=== PATIENT | female | born 1960 | race Caucasian/White ===

== ENCOUNTER 2018-04-24 10:11 | Inpatient (IN) | payer MEDICARE, OTHER ==
[2018-04-24] MEDS: SOD CHLORIDE 0.9% 500 ML IV (11:01)
[2018-04-24] MEDS: ONDANSETRON 4 MG INJ IV ×3 (11:01→16:10)
[2018-04-24 11:11] LABS: ADD UMIC YES; UR ASCORBIC ACID NEGATIVE (NEGATIVE); UR BACTERIA FEW /HPF (NONE SEEN); UR BILIRUBIN (Dip) 1+ mg/dL (NEGATIVE); UR BLOOD (Dip) NEGATIVE (NEGATIVE); UR CLARITY SLIGHTLY CLOUDY (CLEAR); UR COLOR AMBER (YELLOW); UR GLUCOSE (Dip) NEGATIVE (NEGATIVE); UR KETONES (Dip) 1+ mg/dL (NEGATIVE); UR LEUKOCYTE ESTERASE (Dip) TRACE Leu/ul (NEGATIVE); UR NITRITE (Dip) NEGATIVE (NEGATIVE); UR RBC 2 /HPF (0-5); UR SPECIFIC GRAVITY (Dip) 1.027 (1.003-1.030); UR SQUAMOUS EPITHELIAL CELL FEW /HPF (FEW); UR TOTAL PROTEIN (Dip) 2+ mg/dl (NEGATIVE); UR UROBILINOGEN (Dip) 2+ mg/dL (NEGATIVE); UR WBC 10 /HPF (0-5)
[2018-04-24 11:36] LABS: ADD MAN DIFF? NO
[2018-04-24 11:40] LABS: POSITIVE DIFF @See below
[2018-04-24 11:41] LABS: BASOPHILS % 0.2 % (0.0-2.0); HEMATOCRIT 33.1 % (37.0-47.0); HEMOGLOBIN 10.9 g/dl (12.0-16.0); LYMPHOCYTES # 0.7 10^3/ul (0.8-2.9); LYMPHOCYTES % 14.3 % (15.0-51.0); MEAN CORPUSCULAR HEMOGLOBIN 28.1 pg (29.0-33.0); MEAN CORPUSCULAR HGB CONC 32.9 g/dl (32.0-37.0); MEAN CORPUSCULAR VOLUME 85.3 fl (82.0-101.0); MEAN PLATELET VOLUME 9.8 fl (7.4-10.4); MONOCYTE # 0.4 10^3/ul (0.3-0.9); MONOCYTES % 9.4 % (0.0-11.0); NEUTROPHIL # 3.5 10^3/ul (1.6-7.5); NEUTROPHILS % 75.9 % (39.0-77.0); PLATELET COUNT 128 10^3/UL (140-415); RED BLOOD COUNT 3.88 10^6/ul (4.20-5.40); RED CELL DISTRIBUTION WIDTH 12.3 % (11.5-14.5)
[2018-04-24 11:41] LABS: WHITE BLOOD COUNT 4.7 10^3/ul (4.8-10.8)
[2018-04-24 12:03] LABS: ALANINE AMINOTRANSFERASE 91 IU/L (13-69); ALBUMIN 3.8 g/dl (3.3-4.9); ALBUMIN/GLOBULIN RATIO 1.26; ALKALINE PHOSPHATASE 130 IU/L (42-121); ANION GAP 10 (5-13); ASPARTATE AMINO TRANSFERASE 82 IU/L (15-46); BILIRUBIN,INDIRECT 2.4 mg/dl (0-1.1); BILIRUBIN,TOTAL 2.4 mg/dl (0.2-1.3); BLOOD UREA NITROGEN 17 mg/dl (7-20); CALCIUM 8.5 mg/dl (8.4-10.2); CARBON DIOXIDE 25 mmol/L (21-31); CHLORIDE 100 mmol/L (97-110); CREATININE 0.71 mg/dl (0.44-1.00); Estimated GFR > 60 mL/min (>60); GLUCOSE 138 mg/dl (70-220); POTASSIUM 4.1 mmol/L (3.5-5.1); SODIUM 135 mmol/L (135-144); TOTAL PROTEIN 6.8 g/dl (6.1-8.1)
[2018-04-24 12:12] LABS: TROPONIN-I < 0.012 ng/ml (0.000-0.120)
[2018-04-24 12:46] LABS: ANISOCYTOSIS 2+ (0-0); BAND NEUTROPHILS % (M) 1 % (0-4); GIANT THROMBO% (M) 1 % (0-0); LYMPHOCYTES #M 0.7 10^3/ul (0.8-2.9); LYMPHOCYTES % (M) 15 % (15-51); MICROCYTOSIS 2+ (0-0); MONOCYTE #M 0.2 10^3/ul (0.3-0.9); MONOCYTES % (M) 5 % (0-11); PLATELET ESTIMATE DECREASED; POIKILOCYTOSIS 1+ (0-0); POLYCHROMASIA 3+ (0-0); REACTIVE LYMPHOCYTES #M 0.2 10^3/ul (0.0-0.0); REACTIVE LYMPHOCYTES% (M) 5 % (0-0); SEG NEUT #M 3.5 10^3/ul (1.6-7.5); SEGMENTED NEUTROPHILS (M) % 74 % (39-77); SMUDGE%M 3 % (0-0)
[2018-04-24 13:51] LABS: LIPASE 3930 U/L (23-300)
[2018-04-24] MEDS ORDERED: NACL 0.9% 3 ML SYG IV (15:30)
[2018-04-24] MEDS ORDERED: morphine 2 MG INJ IV (15:30)
[2018-04-24] MEDS: SOD CHLORIDE 0.9% 1,000 ML IV ×2 (16:01→23:52)
[2018-04-24] MEDS: SOD CHLORIDE 0.9% 100 ML (17:22)
[2018-04-24] MEDS: IOHEXOL 300MG/ML 150 ML BTL (17:23)
[2018-04-24] MEDS: METOCLOPRAMIDE 10 MG INJ IV ×2 (17:44→23:52)
[2018-04-24] MEDS: HYDROmorphONE 0.5 MG/0.5 ML SYG IV (17:52)
[2018-04-24] MEDS: ACETAMINOPHEN 325 MG TAB PO (20:14)
[2018-04-24] MEDS: ENOXAPARIN 100 MG/ML SYG SC (20:18)
[2018-04-25 06:07] LABS: ADD MAN DIFF? NO
[2018-04-25 06:12] LABS: BASOPHILS % 0.2 % (0.0-2.0); EOSINOPHILS % 0.2 % (0.0-7.0); HEMATOCRIT 35.6 % (37.0-47.0); HEMOGLOBIN 11.6 g/dl (12.0-16.0); LYMPHOCYTES # 0.9 10^3/ul (0.8-2.9); LYMPHOCYTES % 16.9 % (15.0-51.0); MEAN CORPUSCULAR HEMOGLOBIN 28.4 pg (29.0-33.0); MEAN CORPUSCULAR HGB CONC 32.6 g/dl (32.0-37.0); MEAN CORPUSCULAR VOLUME 87.3 fl (82.0-101.0); MEAN PLATELET VOLUME 10.7 fl (7.4-10.4); MONOCYTE # 0.5 10^3/ul (0.3-0.9); MONOCYTES % 8.6 % (0.0-11.0); NEUTROPHIL # 4.1 10^3/ul (1.6-7.5); NEUTROPHILS % 73.7 % (39.0-77.0); PLATELET COUNT 108 10^3/UL (140-415); RED BLOOD COUNT 4.08 10^6/ul (4.20-5.40); RED CELL DISTRIBUTION WIDTH 12.7 % (11.5-14.5)
[2018-04-25 06:12] LABS: WHITE BLOOD COUNT 5.5 10^3/ul (4.8-10.8)
[2018-04-25] MEDS: SOD CHLORIDE 0.9% 1,000 ML IV ×4 (06:22→22:17)
[2018-04-25] MEDS: METOCLOPRAMIDE 10 MG INJ IV ×4 (06:22→23:35)
[2018-04-25] MEDS: PANTOPRAZOLE 40 MG INJ IV (06:22)
[2018-04-25 06:38] LABS: HEMOGLOBIN A1C 5.6 % (0-5.9)
[2018-04-25 07:01] LABS: ALANINE AMINOTRANSFERASE 83 IU/L (13-69); ALBUMIN 3.3 g/dl (3.3-4.9); ALBUMIN/GLOBULIN RATIO 1.06; ALKALINE PHOSPHATASE 162 IU/L (42-121); ANION GAP 11 (5-13); ASPARTATE AMINO TRANSFERASE 67 IU/L (15-46); BILIRUBIN,INDIRECT 1.3 mg/dl (0-1.1); BILIRUBIN,TOTAL 1.3 mg/dl (0.2-1.3); BLOOD UREA NITROGEN 17 mg/dl (7-20); CARBON DIOXIDE 21 mmol/L (21-31); CHLORIDE 110 mmol/L (97-110); CREATININE 0.68 mg/dl (0.44-1.00); Estimated GFR > 60 mL/min (>60); GLUCOSE 97 mg/dl (70-220); MAGNESIUM 2.1 mg/dl (1.7-2.5); POTASSIUM 4.3 mmol/L (3.5-5.1); SODIUM 142 mmol/L (135-144); TOTAL PROTEIN 6.4 g/dl (6.1-8.1)
[2018-04-25] MEDS: ENOXAPARIN 100 MG/ML SYG SC (08:34)
[2018-04-25] MEDS: PIPER-TAZO 3.375 GM IV (PMX) 100 ML IVPB ×3 (11:31→23:35)
[2018-04-25] MEDS: HYDROmorphONE 0.5 MG/0.5 ML SYG IV (18:40)
[2018-04-25 19:39] LABS: LIPASE 893 U/L (23-300)
[2018-04-25] MEDS: ENOXAPARIN 80 MG/0.8 ML SYG SC (20:30)
[2018-04-25] MEDS ORDERED: ENOXAPARIN 100 MG/ML SYG SC (21:00)
[2018-04-25] MEDS: ONDANSETRON 4 MG INJ IV (23:35)
[2018-04-25] MEDS: HYDROCODONE/APAP (5/325) TAB PO (23:44)
[2018-04-26] MEDS: PANTOPRAZOLE 40 MG INJ IV (05:00)
[2018-04-26] MEDS: METOCLOPRAMIDE 10 MG INJ IV ×4 (05:06→23:37)
[2018-04-26] MEDS: PIPER-TAZO 3.375 GM IV (PMX) 100 ML IVPB ×4 (05:07→23:37)
[2018-04-26] MEDS: SOD CHLORIDE 0.9% 1,000 ML IV (05:38)
[2018-04-26 06:00] LABS: ADD MAN DIFF? NO
[2018-04-26 06:34] LABS: BASOPHILS % 0.2 % (0.0-2.0); EOSINOPHILS % 0.6 % (0.0-7.0); HEMATOCRIT 36.7 % (37.0-47.0); HEMOGLOBIN 11.9 g/dl (12.0-16.0); LYMPHOCYTES % 19.8 % (15.0-51.0); MEAN CORPUSCULAR HEMOGLOBIN 28.7 pg (29.0-33.0); MEAN CORPUSCULAR HGB CONC 32.4 g/dl (32.0-37.0); MEAN CORPUSCULAR VOLUME 88.4 fl (82.0-101.0); MEAN PLATELET VOLUME 11.3 fl (7.4-10.4); MONOCYTE # 0.8 10^3/ul (0.3-0.9); NEUTROPHIL # 3.3 10^3/ul (1.6-7.5); NEUTROPHILS % 63.6 % (39.0-77.0); PLATELET COUNT 120 10^3/UL (140-415); RED BLOOD COUNT 4.15 10^6/ul (4.20-5.40)
[2018-04-26 06:34] LABS: WHITE BLOOD COUNT 5.2 10^3/ul (4.8-10.8)
[2018-04-26 06:48] LABS: POSITIVE DIFF @See below
[2018-04-26 07:03] LABS: ALANINE AMINOTRANSFERASE 69 IU/L (13-69); ALBUMIN 3.3 g/dl (3.3-4.9); ALBUMIN/GLOBULIN RATIO 1.06; ALKALINE PHOSPHATASE 164 IU/L (42-121); ANION GAP 12 (5-13); ASPARTATE AMINO TRANSFERASE 52 IU/L (15-46); BILIRUBIN,INDIRECT 0.9 mg/dl (0-1.1); BILIRUBIN,TOTAL 0.9 mg/dl (0.2-1.3); BLOOD UREA NITROGEN 13 mg/dl (7-20); CARBON DIOXIDE 16 mmol/L (21-31); CHLORIDE 114 mmol/L (97-110); CREATININE 0.67 mg/dl (0.44-1.00); Estimated GFR > 60 mL/min (>60); GLUCOSE 108 mg/dl (70-220); LIPASE 521 U/L (23-300); POTASSIUM 3.9 mmol/L (3.5-5.1); SODIUM 142 mmol/L (135-144); TOTAL PROTEIN 6.4 g/dl (6.1-8.1)
[2018-04-26 07:10] LABS: MAGNESIUM 2.1 mg/dl (1.7-2.5)
[2018-04-26] MEDS ORDERED: HYDROmorphONE 1 MG/5 ML IV SYRINGE IV ×3 (08:00)
[2018-04-26] MEDS ORDERED: ONDANSETRON 4 MG INJ IV (08:00)
[2018-04-26] MEDS ORDERED: MEPERIDINE 25 MG INJ IV (08:00)
[2018-04-26] MEDS ORDERED: hydrALAzine 20 MG INJ IV (08:00)
[2018-04-26] MEDS ORDERED: DIPHENHYDRAMINE 50 MG INJ IV (08:00)
[2018-04-26] MEDS ORDERED: LABETALOL HCL 20MG INJ IV (08:00)
[2018-04-26] MEDS: ENOXAPARIN 80 MG/0.8 ML SYG SC (09:00)
[2018-04-26] MEDS ORDERED: ETOMIDATE 20 MG INJ (10:28)
[2018-04-26] MEDS ORDERED: MIDAZOLAM 1 MG/ML 2 ML INJ (10:28)
[2018-04-26] MEDS ORDERED: FENTAnyl 50 MCG/ML VIAL ×3 (10:28→11:07)
[2018-04-26] MEDS ORDERED: ROCURONIUM 50 MG INJ (10:28)
[2018-04-26] MEDS ORDERED: ONDANSETRON 4 MG INJ (10:31)
[2018-04-26] MEDS ORDERED: ROPIVACAINE 0.5 % 30 ML VIAL (10:34)
[2018-04-26] MEDS ORDERED: METOCLOPRAMIDE 10 MG INJ (10:34)
[2018-04-26] MEDS ORDERED: ESMOLOL 10 ML (10:57)
[2018-04-26] MEDS ORDERED: PHENYLephrine (100 MCG/ML) 5ML SYG ×6 (11:00→11:56)
[2018-04-26] MEDS ORDERED: SUCCINYLCHOLINE CHLORIDE 100 MG/5 ML SYG IV (11:06)
[2018-04-26] MEDS: BUPIVACAINE 0.25% (MPF) 30 ML INJ (11:24)
[2018-04-26] MEDS: LIDOCAINE 1%/EPI 30 ML INJ (11:25)
[2018-04-26] MEDS ORDERED: NEOSTIGMINE 3 MG/3 ML SYRINGE ×2 (12:04→12:24)
[2018-04-26] MEDS ORDERED: SUGAMMADEX SODIUM 200 MG/2 ML VIAL IV (12:23)
[2018-04-26] MEDS ORDERED: D5W-0.45 NACL + KCL 20 MEQ 1,000 ML IV (12:27)
[2018-04-26] MEDS: ONDANSETRON 4 MG INJ IV (14:56)
[2018-04-26] MEDS: HYDROmorphONE 0.5 MG/0.5 ML SYG IV ×2 (15:15→23:37)
[2018-04-26] MEDS: AMIODARONE 900 MG in DEXTROSE 5% 482 ML IV (16:38)
[2018-04-26] MEDS: SOD CHLORIDE 0.45% 1,000 ML IV (16:44)
[2018-04-26] MEDS ORDERED: ENOXAPARIN 100 MG/ML SYG SC (21:00)
[2018-04-26] MEDS ORDERED: RIVAROXABAN 15 MG TABLET PO (21:00)
[2018-04-26] MEDS: NORTRIPTYLINE 25 MG CAP PO (21:09)
[2018-04-26] MEDS: ATORVASTATIN 10 MG TAB PO (21:10)
[2018-04-26] MEDS: GABAPENTIN 300 MG CAP PO (21:10)
[2018-04-27] MEDS: SOD CHLORIDE 0.9% 500 ML IV ×3 (01:57→14:11)
[2018-04-27] MEDS: METOPROLOL 5 MG INJ IV ×2 (03:08→10:02)
[2018-04-27 05:21] LABS: WHITE BLOOD COUNT 8.7 10^3/ul (4.8-10.8)
[2018-04-27 05:21] LABS: HEMATOCRIT 38.1 % (37.0-47.0); MEAN CORPUSCULAR HEMOGLOBIN 28.3 pg (29.0-33.0); MEAN CORPUSCULAR HGB CONC 31.5 g/dl (32.0-37.0); MEAN CORPUSCULAR VOLUME 89.9 fl (82.0-101.0); MEAN PLATELET VOLUME 10.6 fl (7.4-10.4); NUCLEATED RED BLOOD CELLS% 0.5 /100WBC (0.0-0.0); PLATELET COUNT 178 10^3/UL (140-415); RED BLOOD COUNT 4.24 10^6/ul (4.20-5.40); RED CELL DISTRIBUTION WIDTH 13.2 % (11.5-14.5)
[2018-04-27] MEDS: METOCLOPRAMIDE 10 MG INJ IV ×3 (05:32→17:12)
[2018-04-27] MEDS: PIPER-TAZO 3.375 GM IV (PMX) 100 ML IVPB ×3 (05:32→17:12)
[2018-04-27] MEDS: PANTOPRAZOLE 40 MG INJ IV (05:32)
[2018-04-27 05:37] LABS: ANION GAP 14 (5-13); BLOOD UREA NITROGEN 18 mg/dl (7-20); CALCIUM 8.3 mg/dl (8.4-10.2); CARBON DIOXIDE 12 mmol/L (21-31); CHLORIDE 113 mmol/L (97-110); CREATININE 1.21 mg/dl (0.44-1.00); Estimated GFR 46 mL/min (>60); GLUCOSE 75 mg/dl (70-220); MAGNESIUM 2.1 mg/dl (1.7-2.5); PHOSPHORUS 4.9 mg/dl (2.5-4.9); POTASSIUM 4.6 mmol/L (3.5-5.1); SODIUM 139 mmol/L (135-144)
[2018-04-27 05:51] LABS: POSITIVE DIFF @See below
[2018-04-27 05:52] LABS: ADD MAN DIFF? YES
[2018-04-27] MEDS ORDERED: ENOXAPARIN 30 MG/0.3 ML SYG SC (07:00)
[2018-04-27] MEDS: SOD CHLORIDE 0.9% 1,000 ML IV (07:02)
[2018-04-27 08:25] LABS: BAND NEUTROPHILS #M 1.1 10^3/ul (0.0-0.6); BAND NEUTROPHILS % (M) 13 % (0-4); GIANT THROMBO% (M) 1 % (0-0); LYMPHOCYTES #M 0.5 10^3/ul (0.8-2.9); LYMPHOCYTES % (M) 6 % (15-51); MONOCYTE #M 0.9 10^3/ul (0.3-0.9); MONOCYTES % (M) 11 % (0-11); PLATELET ESTIMATE NORMAL; POIKILOCYTOSIS 1+ (0-0); REACTIVE LYMPHOCYTES% (M) 1 % (0-0); SEG NEUT #M 6.1 10^3/ul (1.6-7.5); SEGMENTED NEUTROPHILS (M) % 69 % (39-77); SMUDGE%M 2 % (0-0)
[2018-04-27] MEDS: GABAPENTIN 300 MG CAP PO ×2 (08:40→21:33)
[2018-04-27] MEDS: LOSARTAN 25 MG TAB PO (08:42)
[2018-04-27] MEDS: ENOXAPARIN 100 MG/ML SYG SC ×2 (08:44→21:34)
[2018-04-27] MEDS: FUROSEMIDE 40 MG TAB PO (08:50)
[2018-04-27] MEDS ORDERED: METOPROLOL 5 MG INJ IV ×2 (09:30→17:00)
[2018-04-27] MEDS: ANASTROZOLE 1 MG TAB PO (09:56)
[2018-04-27] MEDS: FUROSEMIDE 20 MG INJ IV (15:19)
[2018-04-27] MEDS: SOD CHLORIDE 0.45% 1,000 ML IV (15:39)
[2018-04-27] MEDS: AMIODARONE 200 MG TAB PO (21:00)
[2018-04-27] MEDS: NORTRIPTYLINE 25 MG CAP PO (21:00)
[2018-04-27] MEDS: ATORVASTATIN 10 MG TAB PO (21:32)
[2018-04-28] MEDS: METOCLOPRAMIDE 10 MG INJ IV ×4 (00:26→17:37)
[2018-04-28] MEDS: PIPER-TAZO 3.375 GM IV (PMX) 100 ML IVPB ×4 (00:27→21:48)
[2018-04-28] MEDS: PANTOPRAZOLE 40 MG INJ IV (05:31)
[2018-04-28] MEDS: SOD CHLORIDE 0.9% 1,000 ML IV ×2 (05:38→19:53)
[2018-04-28 05:58] LABS: ADD MAN DIFF? NO; BASOPHILS % 0.3 % (0.0-2.0); EOSINOPHILS % 0.6 % (0.0-7.0); HEMATOCRIT 32.7 % (37.0-47.0); HEMOGLOBIN 10.6 g/dl (12.0-16.0); LYMPHOCYTES % 13.2 % (15.0-51.0); MEAN CORPUSCULAR HEMOGLOBIN 28.3 pg (29.0-33.0); MEAN CORPUSCULAR HGB CONC 32.4 g/dl (32.0-37.0); MEAN CORPUSCULAR VOLUME 87.2 fl (82.0-101.0); MEAN PLATELET VOLUME 10.3 fl (7.4-10.4); MONOCYTE # 0.7 10^3/ul (0.3-0.9); MONOCYTES % 8.9 % (0.0-11.0); NEUTROPHIL # 5.6 10^3/ul (1.6-7.5); NEUTROPHILS % 76.3 % (39.0-77.0); NUCLEATED RED BLOOD CELLS # 0.1 10^3/ul (0.0-0.0); NUCLEATED RED BLOOD CELLS% 0.7 /100WBC (0.0-0.0); PLATELET COUNT 148 10^3/UL (140-415); RED BLOOD COUNT 3.75 10^6/ul (4.20-5.40); RED CELL DISTRIBUTION WIDTH 13.2 % (11.5-14.5)
[2018-04-28 05:58] LABS: WHITE BLOOD COUNT 7.3 10^3/ul (4.8-10.8)
[2018-04-28 07:08] LABS: ALBUMIN 2.4 g/dl (3.3-4.9); ANION GAP 8 (5-13); BLOOD UREA NITROGEN 28 mg/dl (7-20); CALCIUM 7.4 mg/dl (8.4-10.2); CARBON DIOXIDE 18 mmol/L (21-31); CHLORIDE 111 mmol/L (97-110); CREATININE 1.63 mg/dl (0.44-1.00); GLUCOSE 131 mg/dl (70-220); PHOSPHORUS 2.9 mg/dl (2.5-4.9); POTASSIUM 4.2 mmol/L (3.5-5.1); SODIUM 137 mmol/L (135-144)
[2018-04-28 07:50] LABS: LIPASE 713 U/L (23-300)
[2018-04-28] MEDS: GABAPENTIN 300 MG CAP PO (08:31)
[2018-04-28] MEDS: ANASTROZOLE 1 MG TAB PO (08:32)
[2018-04-28] MEDS: ENOXAPARIN 100 MG/ML SYG SC ×2 (08:36→21:50)
[2018-04-28] MEDS: AMIODARONE 200 MG TAB PO ×2 (08:46→21:48)
[2018-04-28] MEDS: LOSARTAN 25 MG TAB PO (09:00)
[2018-04-28] MEDS: FUROSEMIDE 40 MG TAB PO (09:00)
[2018-04-28] MEDS: SOD CHLORIDE 0.45% 1,000 ML IV (14:32)
[2018-04-28 16:09] LABS: ANION GAP 8 (5-13); BLOOD UREA NITROGEN 24 mg/dl (7-20); CALCIUM 6.3 mg/dl (8.4-10.2); CARBON DIOXIDE 16 mmol/L (21-31); CHLORIDE 106 mmol/L (97-110); CREATININE 1.51 mg/dl (0.44-1.00); Estimated GFR 35 mL/min (>60); GLUCOSE 105 mg/dl (70-220); POTASSIUM 3.2 mmol/L (3.5-5.1); SODIUM 130 mmol/L (135-144)
[2018-04-28 16:28] LABS: B-TYPE NATRIURETIC PEPTIDE 5640 PG/ML (0-125)
[2018-04-28 17:37] LABS: SODIUM,URINE RANDOM 48 mmol/L (30-90)
[2018-04-28 17:41] LABS: CREATININE,URINE RANDOM 55.74 mg/dl (20-320); PROTEIN/CREAT RATIO 1.09 RATIO
[2018-04-28] MEDS ORDERED: SOD CHLORIDE 0.9% 1,000 ML IV (19:30)
[2018-04-28] MEDS: POTASSIUM CHLORIDE (SR) 20 MEQ TAB PO (19:53)
[2018-04-28] MEDS: ATORVASTATIN 10 MG TAB PO (21:48)
[2018-04-29] MEDS: METOCLOPRAMIDE 10 MG INJ IV ×4 (00:24→18:54)
[2018-04-29] MEDS: PANTOPRAZOLE 40 MG INJ IV (05:30)
[2018-04-29] MEDS: PIPER-TAZO 3.375 GM IV (PMX) 100 ML IVPB ×3 (05:34→21:08)
[2018-04-29 06:31] LABS: AMYLASE 272 U/L (11-123)
[2018-04-29 06:41] LABS: MAGNESIUM 1.9 mg/dl (1.7-2.5)
[2018-04-29 06:46] LABS: ALBUMIN 2.3 g/dl (3.3-4.9); ANION GAP 8 (5-13); BLOOD UREA NITROGEN 27 mg/dl (7-20); CALCIUM 7.5 mg/dl (8.4-10.2); CARBON DIOXIDE 17 mmol/L (21-31); CHLORIDE 111 mmol/L (97-110); GLUCOSE 116 mg/dl (70-220); PHOSPHORUS 2.2 mg/dl (2.5-4.9); POTASSIUM 4.2 mmol/L (3.5-5.1); SODIUM 136 mmol/L (135-144)
[2018-04-29 06:56] LABS: LIPASE 3934 U/L (23-300)
[2018-04-29] MEDS ORDERED: BUMETANIDE 1 MG INJ IV (08:30)
[2018-04-29] MEDS ORDERED: ALBUMIN HUMAN 25% 100 ML IV (08:30)
[2018-04-29] MEDS: AMIODARONE 200 MG TAB PO ×2 (09:01→21:07)
[2018-04-29] MEDS: ANASTROZOLE 1 MG TAB PO (09:05)
[2018-04-29] MEDS: ENOXAPARIN 100 MG/ML SYG SC ×2 (09:07→21:19)
[2018-04-29] MEDS: GABAPENTIN 300 MG CAP PO (09:07)
[2018-04-29] MEDS: DEXTROSE 5%-0.9% NACL 1,000 ML IV (09:12)
[2018-04-29] MEDS: POTASSIUM PHOSPHATE 15 MM in SOD CHLORIDE 0.9% 250 ML IVPB (10:31)
[2018-04-29 10:56] LABS: ADD UMIC YES; UR AMORPHOUS CRYSTAL FEW /HPF (NONE SEEN); UR ASCORBIC ACID NEGATIVE (NEGATIVE); UR BACTERIA FEW /HPF (NONE SEEN); UR BILIRUBIN (Dip) NEGATIVE (NEGATIVE); UR BLOOD (Dip) 1+ mg/dL (NEGATIVE); UR CLARITY CLOUDY (CLEAR); UR COLOR YELLOW (YELLOW); UR GLUCOSE (Dip) NEGATIVE (NEGATIVE); UR KETONES (Dip) NEGATIVE (NEGATIVE); UR LEUKOCYTE ESTERASE (Dip) NEGATIVE Leu/ul (NEGATIVE); UR NITRITE (Dip) NEGATIVE (NEGATIVE); UR RBC 3 /HPF (0-5); UR SPECIFIC GRAVITY (Dip) 1.016 (1.003-1.030); UR TOTAL PROTEIN (Dip) 1+ mg/dl (NEGATIVE); UR URIC ACID CRYSTAL MANY /HPF (NONE SEEN); UR UROBILINOGEN (Dip) NEGATIVE (NEGATIVE); UR WBC 11 /HPF (0-5)
[2018-04-29] MEDS: ALBUMIN HUMAN 25% 100 ML IV ×2 (13:07→19:46)
[2018-04-29] MEDS: BUMETANIDE 1 MG INJ IV ×2 (14:47→21:08)
[2018-04-29] MEDS: ATORVASTATIN 10 MG TAB PO (21:07)
[2018-04-30] MEDS: METOCLOPRAMIDE 10 MG INJ IV ×5 (00:46→23:38)
[2018-04-30] MEDS: ALBUMIN HUMAN 25% 100 ML IV (04:13)
[2018-04-30] MEDS: BUMETANIDE 1 MG INJ IV (04:59)
[2018-04-30 05:49] LABS: ALANINE AMINOTRANSFERASE 718 IU/L (13-69); ALBUMIN 3.1 g/dl (3.3-4.9); ALKALINE PHOSPHATASE 123 IU/L (42-121); ASPARTATE AMINO TRANSFERASE 570 IU/L (15-46); BILIRUBIN,INDIRECT 0.9 mg/dl (0-1.1); BILIRUBIN,TOTAL 0.9 mg/dl (0.2-1.3); TOTAL PROTEIN 5.8 g/dl (6.1-8.1)
[2018-04-30 05:58] LABS: ANION GAP 9 (5-13); BLOOD UREA NITROGEN 21 mg/dl (7-20); CALCIUM 8.1 mg/dl (8.4-10.2); CARBON DIOXIDE 23 mmol/L (21-31); CHLORIDE 109 mmol/L (97-110); CREATININE 1.44 mg/dl (0.44-1.00); GLUCOSE 117 mg/dl (70-220); PHOSPHORUS 2.3 mg/dl (2.5-4.9); POTASSIUM 3.6 mmol/L (3.5-5.1); SODIUM 141 mmol/L (135-144)
[2018-04-30 05:58] LABS: MAGNESIUM 1.7 mg/dl (1.7-2.5)
[2018-04-30] MEDS: PANTOPRAZOLE 40 MG INJ IV (06:03)
[2018-04-30] MEDS: PIPER-TAZO 3.375 GM IV (PMX) 100 ML IVPB ×3 (06:03→22:21)
[2018-04-30 06:57] LABS: LIPASE 6543 U/L (23-300)
[2018-04-30] MEDS: AMIODARONE 200 MG TAB PO ×2 (08:53→21:04)
[2018-04-30] MEDS: ANASTROZOLE 1 MG TAB PO (08:56)
[2018-04-30] MEDS: ENOXAPARIN 100 MG/ML SYG SC ×2 (08:57→21:05)
[2018-04-30] MEDS: GABAPENTIN 300 MG CAP PO ×3 (09:00→21:04)
[2018-04-30] MEDS: MAGNESIUM OXIDE 400 MG TAB PO (09:13)
[2018-04-30] MEDS: POTASSIUM CHLORIDE (SR) 20 MEQ TAB PO (09:13)
[2018-04-30] MEDS: POTASSIUM PHOSPHATE 15 MM in SOD CHLORIDE 0.9% 250 ML IVPB (10:34)
[2018-04-30 16:32] LABS: HEPATITIS B SURFACE ANTIBODY NEGATIVE (NEGATIVE)
[2018-04-30 18:53] LABS: HEPATITIS B SURFACE ANTIGEN NEGATIVE (NEGATIVE)
[2018-04-30 19:11] LABS: HEPATITIS B CORE ANTIBODY NEGATIVE (NEGATIVE); HEPATITIS C VIRAL ANTIBODY NEGATIVE (NEGATIVE)
[2018-04-30] MEDS: ATORVASTATIN 10 MG TAB PO (21:04)
[2018-04-30] MEDS: NORTRIPTYLINE 25 MG CAP PO (23:38)
[2018-05-01] MEDS: METOCLOPRAMIDE 10 MG INJ IV ×4 (05:44→23:20)
[2018-05-01] MEDS: PIPER-TAZO 3.375 GM IV (PMX) 100 ML IVPB ×3 (05:44→20:35)
[2018-05-01] MEDS: PANTOPRAZOLE (EC) 40 MG TAB PO (05:44)
[2018-05-01 05:46] LABS: HEMATOCRIT 29.9 % (37.0-47.0); HEMOGLOBIN 10.1 g/dl (12.0-16.0); MEAN CORPUSCULAR HEMOGLOBIN 28.7 pg (29.0-33.0); MEAN CORPUSCULAR HGB CONC 33.8 g/dl (32.0-37.0); MEAN CORPUSCULAR VOLUME 84.9 fl (82.0-101.0); MEAN PLATELET VOLUME 10.2 fl (7.4-10.4); NUCLEATED RED BLOOD CELLS% 0.6 /100WBC (0.0-0.0); PLATELET COUNT 194 10^3/UL (140-415); RED BLOOD COUNT 3.52 10^6/ul (4.20-5.40); RED CELL DISTRIBUTION WIDTH 13.6 % (11.5-14.5)
[2018-05-01 05:46] LABS: WHITE BLOOD COUNT 7.8 10^3/ul (4.8-10.8)
[2018-05-01 06:13] LABS: ALBUMIN 2.9 g/dl (3.3-4.9); ANION GAP 9 (5-13); BLOOD UREA NITROGEN 21 mg/dl (7-20); CALCIUM 7.7 mg/dl (8.4-10.2); CARBON DIOXIDE 26 mmol/L (21-31); CHLORIDE 105 mmol/L (97-110); CREATININE 1.15 mg/dl (0.44-1.00); GLUCOSE 105 mg/dl (70-220); PHOSPHORUS 2.5 mg/dl (2.5-4.9); POTASSIUM 3.6 mmol/L (3.5-5.1); SODIUM 140 mmol/L (135-144)
[2018-05-01 06:15] LABS: ALANINE AMINOTRANSFERASE 684 IU/L (13-69); ALBUMIN 3.1 g/dl (3.3-4.9); ALKALINE PHOSPHATASE 102 IU/L (42-121); ASPARTATE AMINO TRANSFERASE 567 IU/L (15-46); BILIRUBIN,INDIRECT 0.9 mg/dl (0-1.1); BILIRUBIN,TOTAL 0.9 mg/dl (0.2-1.3); TOTAL PROTEIN 5.6 g/dl (6.1-8.1)
[2018-05-01 06:17] LABS: MAGNESIUM 1.6 mg/dl (1.7-2.5)
[2018-05-01 06:22] LABS: ADD MAN DIFF? YES; POSITIVE DIFF @See below
[2018-05-01 06:32] LABS: AMYLASE 462 U/L (11-123)
[2018-05-01 06:41] LABS: LIPASE 5421 U/L (23-300)
[2018-05-01] MEDS: GABAPENTIN 300 MG CAP PO ×3 (08:49→20:30)
[2018-05-01] MEDS: AMIODARONE 200 MG TAB PO ×2 (08:50→20:24)
[2018-05-01] MEDS: ENOXAPARIN 100 MG/ML SYG SC ×2 (08:53→20:28)
[2018-05-01 09:06] LABS: ANISOCYTOSIS 1+ (0-0); BAND NEUTROPHILS #M 0.5 10^3/ul (0.0-0.6); BAND NEUTROPHILS % (M) 7 % (0-4); EOSINOPHILS % (M) 1 % (0-7); ERYTHROBLAST% (NRBC) (M) 4 % (0-0); LYMPHOCYTES #M 1.4 10^3/ul (0.8-2.9); LYMPHOCYTES % (M) 18 % (15-51); METAMYELOCYTES %M 1 % (0-0); MICROCYTOSIS 1+ (0-0); MONOCYTE #M 0.7 10^3/ul (0.3-0.9); MONOCYTES % (M) 9 % (0-11); MYELOCYTES #M 0.3 10^3/ul (0.0-0.0); MYELOCYTES % (M) 4 % (0-0); OVALOCYTES 1+ (0-0); PLATELET ESTIMATE NORMAL; POIKILOCYTOSIS 1+ (0-0); POLYCHROMASIA 1+ (0-0); PROMYELOCYTES % (M) 1 % (0-0); REACTIVE LYMPHOCYTES #M 0.1 10^3/ul (0.0-0.0); REACTIVE LYMPHOCYTES% (M) 2 % (0-0); SEG NEUT #M 4.5 10^3/ul (1.6-7.5); SEGMENTED NEUTROPHILS (M) % 57 % (39-77); SMUDGE%M 3 % (0-0); TARGET CELLS 1+ (0-0)
[2018-05-01] MEDS: MAGNESIUM SULFATE 2 GM/50 ML 50 ML IVPB (12:10)
[2018-05-01] MEDS: POTASSIUM CHLORIDE (SR) 20 MEQ TAB PO (12:10)
[2018-05-01] MEDS: ANASTROZOLE 1 MG TAB PO (12:32)
[2018-05-01] MEDS: NORTRIPTYLINE 25 MG CAP PO (20:24)
[2018-05-01] MEDS: ATORVASTATIN 10 MG TAB PO (20:24)
[2018-05-02] MEDS: PANTOPRAZOLE (EC) 40 MG TAB PO (05:20)
[2018-05-02] MEDS: METOCLOPRAMIDE 10 MG INJ IV ×3 (05:20→17:47)
[2018-05-02] MEDS: PIPER-TAZO 3.375 GM IV (PMX) 100 ML IVPB ×3 (05:20→22:14)
[2018-05-02 05:58] LABS: ADD MAN DIFF? NO
[2018-05-02 06:02] LABS: WHITE BLOOD COUNT 7.4 10^3/ul (4.8-10.8)
[2018-05-02 06:02] LABS: BASOPHILS % 0.4 % (0.0-2.0); EOSINOPHILS # 0.1 10^3/ul (0.0-0.5); EOSINOPHILS % 1.5 % (0.0-7.0); HEMOGLOBIN 10.2 g/dl (12.0-16.0); LYMPHOCYTES # 1.5 10^3/ul (0.8-2.9); LYMPHOCYTES % 19.8 % (15.0-51.0); MEAN CORPUSCULAR HEMOGLOBIN 28.3 pg (29.0-33.0); MEAN CORPUSCULAR HGB CONC 32.9 g/dl (32.0-37.0); MEAN CORPUSCULAR VOLUME 86.1 fl (82.0-101.0); MEAN PLATELET VOLUME 9.5 fl (7.4-10.4); MONOCYTE # 0.9 10^3/ul (0.3-0.9); MONOCYTES % 11.6 % (0.0-11.0); NEUTROPHIL # 4.8 10^3/ul (1.6-7.5); NEUTROPHILS % 63.9 % (39.0-77.0); NUCLEATED RED BLOOD CELLS% 0.4 /100WBC (0.0-0.0); PLATELET COUNT 199 10^3/UL (140-415); RED CELL DISTRIBUTION WIDTH 13.9 % (11.5-14.5)
[2018-05-02 06:32] LABS: ALBUMIN/GLOBULIN RATIO 1.14; ANION GAP 10 (5-13); BILIRUBIN,TOTAL 0.8 mg/dl (0.2-1.3); Estimated GFR 56 mL/min (>60)
[2018-05-02 06:37] LABS: ALANINE AMINOTRANSFERASE 533 IU/L (13-69); ALBUMIN 3.1 g/dl (3.3-4.9); ALKALINE PHOSPHATASE 108 IU/L (42-121); ASPARTATE AMINO TRANSFERASE 266 IU/L (15-46); BILIRUBIN,INDIRECT 0.8 mg/dl (0-1.1); BLOOD UREA NITROGEN 19 mg/dl (7-20); CARBON DIOXIDE 22 mmol/L (21-31); CHLORIDE 107 mmol/L (97-110); CREATININE 1.02 mg/dl (0.44-1.00); GLUCOSE 105 mg/dl (70-220); POTASSIUM 3.7 mmol/L (3.5-5.1); SODIUM 139 mmol/L (135-144); TOTAL PROTEIN 5.8 g/dl (6.1-8.1)
[2018-05-02 07:03] LABS: LIPASE 4959 U/L (23-300)
[2018-05-02] MEDS: GABAPENTIN 300 MG CAP PO ×3 (09:07→21:20)
[2018-05-02] MEDS: AMIODARONE 200 MG TAB PO ×2 (09:07→21:20)
[2018-05-02] MEDS: ANASTROZOLE 1 MG TAB PO (09:10)
[2018-05-02] MEDS: ENOXAPARIN 100 MG/ML SYG SC ×2 (09:24→22:18)
[2018-05-02] MEDS: NORTRIPTYLINE 25 MG CAP PO (21:20)
[2018-05-02] MEDS: ATORVASTATIN 10 MG TAB PO (21:20)
[2018-05-02] MEDS: VALACYCLOVIR 500 MG TAB PO (21:20)
[2018-05-03] MEDS: METOCLOPRAMIDE 10 MG INJ IV ×5 (00:30→20:51)
[2018-05-03] MEDS: PIPER-TAZO 3.375 GM IV (PMX) 100 ML IVPB ×3 (05:04→20:52)
[2018-05-03] MEDS: PANTOPRAZOLE (EC) 40 MG TAB PO (05:04)
[2018-05-03 06:10] LABS: ALANINE AMINOTRANSFERASE 368 IU/L (13-69); ALBUMIN 3.2 g/dl (3.3-4.9); ALBUMIN/GLOBULIN RATIO 1.18; ALKALINE PHOSPHATASE 95 IU/L (42-121); ANION GAP 9 (5-13); ASPARTATE AMINO TRANSFERASE 108 IU/L (15-46); BILIRUBIN,INDIRECT 0.8 mg/dl (0-1.1); BILIRUBIN,TOTAL 0.8 mg/dl (0.2-1.3); BLOOD UREA NITROGEN 18 mg/dl (7-20); CALCIUM 8.2 mg/dl (8.4-10.2); CARBON DIOXIDE 26 mmol/L (21-31); CHLORIDE 104 mmol/L (97-110); CREATININE 0.99 mg/dl (0.44-1.00); Estimated GFR 58 mL/min (>60); GLUCOSE 111 mg/dl (70-220); MAGNESIUM 1.9 mg/dl (1.7-2.5); POTASSIUM 3.8 mmol/L (3.5-5.1); SODIUM 139 mmol/L (135-144); TOTAL PROTEIN 5.9 g/dl (6.1-8.1)
[2018-05-03] MEDS: VALACYCLOVIR 500 MG TAB PO ×3 (08:56→20:51)
[2018-05-03] MEDS: GABAPENTIN 300 MG CAP PO ×3 (08:57→20:51)
[2018-05-03] MEDS: AMIODARONE 200 MG TAB PO ×2 (08:57→20:55)
[2018-05-03] MEDS: ENOXAPARIN 100 MG/ML SYG SC (09:02)
[2018-05-03] MEDS: ANASTROZOLE 1 MG TAB PO (09:03)
[2018-05-03] MEDS: OXYMETAZOLINE 0.05% 15 ML NAS SPRAY NASAL (14:39)
[2018-05-03 16:29] LABS: ADD MAN DIFF? NO
[2018-05-03 16:31] LABS: WHITE BLOOD COUNT 6.8 10^3/ul (4.8-10.8)
[2018-05-03 16:31] LABS: BASOPHILS % 0.3 % (0.0-2.0); EOSINOPHILS # 0.1 10^3/ul (0.0-0.5); EOSINOPHILS % 1.5 % (0.0-7.0); HEMATOCRIT 32.4 % (37.0-47.0); HEMOGLOBIN 10.5 g/dl (12.0-16.0); LYMPHOCYTES # 0.9 10^3/ul (0.8-2.9); LYMPHOCYTES % 13.5 % (15.0-51.0); MEAN CORPUSCULAR HEMOGLOBIN 28.8 pg (29.0-33.0); MEAN CORPUSCULAR HGB CONC 32.4 g/dl (32.0-37.0); MEAN PLATELET VOLUME 9.4 fl (7.4-10.4); MONOCYTE # 0.7 10^3/ul (0.3-0.9); MONOCYTES % 9.6 % (0.0-11.0); NEUTROPHILS % 73.3 % (39.0-77.0); PLATELET COUNT 222 10^3/UL (140-415); RED BLOOD COUNT 3.64 10^6/ul (4.20-5.40); RED CELL DISTRIBUTION WIDTH 14.6 % (11.5-14.5)
[2018-05-03] MEDS: FUROSEMIDE 20 MG INJ IV (17:07)
[2018-05-03 17:13] LABS: PROTIME 18.4 Sec (11.9-14.9); PT RATIO 1.4
[2018-05-03] MEDS: NORTRIPTYLINE 25 MG CAP PO (20:51)
[2018-05-03] MEDS: ATORVASTATIN 10 MG TAB PO (20:51)
[2018-05-04] MEDS: PANTOPRAZOLE (EC) 40 MG TAB PO (05:04)
[2018-05-04] MEDS: PIPER-TAZO 3.375 GM IV (PMX) 100 ML IVPB (05:04)
[2018-05-04] MEDS: METOCLOPRAMIDE 10 MG INJ IV (05:04)
[2018-05-04 05:06] LABS: ADD MAN DIFF? NO
[2018-05-04 05:14] LABS: WHITE BLOOD COUNT 6.6 10^3/ul (4.8-10.8)
[2018-05-04 05:14] LABS: BASOPHILS % 0.2 % (0.0-2.0); EOSINOPHILS # 0.1 10^3/ul (0.0-0.5); EOSINOPHILS % 1.2 % (0.0-7.0); HEMATOCRIT 30.2 % (37.0-47.0); HEMOGLOBIN 9.7 g/dl (12.0-16.0); LYMPHOCYTES # 0.9 10^3/ul (0.8-2.9); LYMPHOCYTES % 14.3 % (15.0-51.0); MEAN CORPUSCULAR HEMOGLOBIN 28.4 pg (29.0-33.0); MEAN CORPUSCULAR HGB CONC 32.1 g/dl (32.0-37.0); MEAN CORPUSCULAR VOLUME 88.3 fl (82.0-101.0); MONOCYTE # 0.7 10^3/ul (0.3-0.9); MONOCYTES % 10.8 % (0.0-11.0); NEUTROPHIL # 4.8 10^3/ul (1.6-7.5); NEUTROPHILS % 72.7 % (39.0-77.0); PLATELET COUNT 202 10^3/UL (140-415); RED BLOOD COUNT 3.42 10^6/ul (4.20-5.40); RED CELL DISTRIBUTION WIDTH 14.6 % (11.5-14.5)
[2018-05-04 06:12] LABS: ALANINE AMINOTRANSFERASE 281 IU/L (13-69); ALBUMIN 3.2 g/dl (3.3-4.9); ALKALINE PHOSPHATASE 96 IU/L (42-121); ANION GAP 9 (5-13); ASPARTATE AMINO TRANSFERASE 71 IU/L (15-46); BILIRUBIN,INDIRECT 0.8 mg/dl (0-1.1); BILIRUBIN,TOTAL 0.8 mg/dl (0.2-1.3); BLOOD UREA NITROGEN 15 mg/dl (7-20); CALCIUM 8.2 mg/dl (8.4-10.2); CARBON DIOXIDE 26 mmol/L (21-31); CHLORIDE 106 mmol/L (97-110); CREATININE 0.93 mg/dl (0.44-1.00); Estimated GFR > 60 mL/min (>60); GLUCOSE 107 mg/dl (70-220); POTASSIUM 3.7 mmol/L (3.5-5.1); SODIUM 141 mmol/L (135-144); TOTAL PROTEIN 6.1 g/dl (6.1-8.1)
[2018-05-04 06:20] LABS: LIPASE 2699 U/L (23-300)
[2018-05-04] MEDS: GABAPENTIN 300 MG CAP PO ×3 (09:15→21:13)
[2018-05-04] MEDS: VALACYCLOVIR 500 MG TAB PO (09:15)
[2018-05-04] MEDS: AMIODARONE 200 MG TAB PO ×2 (09:16→21:14)
[2018-05-04] MEDS: HYDROCODONE/APAP (5/325) TAB PO (09:18)
[2018-05-04] MEDS: ANASTROZOLE 1 MG TAB PO (09:24)
[2018-05-04] MEDS ORDERED: METOCLOPRAMIDE 10 MG INJ IV (14:00)
[2018-05-04] MEDS: SOD CHLORIDE 0.9% IVPB ×2 (16:21→23:22)
[2018-05-04] MEDS: ACYCLOVIR IVPB ×2 (16:21→23:22)
[2018-05-04] MEDS: NORTRIPTYLINE 25 MG CAP PO (21:07)
[2018-05-04] MEDS: ATORVASTATIN 10 MG TAB PO (21:13)
[2018-05-05] MEDS: PANTOPRAZOLE (EC) 40 MG TAB PO (05:10)
[2018-05-05] MEDS: HYDROmorphONE 0.5 MG/0.5 ML SYG IV ×2 (05:18→21:41)
[2018-05-05] MEDS: SOD CHLORIDE 0.9% IVPB ×3 (05:21→21:35)
[2018-05-05] MEDS: ACYCLOVIR IVPB ×3 (05:21→21:35)
[2018-05-05 05:53] LABS: ADD MAN DIFF? NO
[2018-05-05 06:02] LABS: WHITE BLOOD COUNT 7.1 10^3/ul (4.8-10.8)
[2018-05-05 06:02] LABS: BASOPHILS % 0.1 % (0.0-2.0); EOSINOPHILS # 0.1 10^3/ul (0.0-0.5); EOSINOPHILS % 0.8 % (0.0-7.0); HEMATOCRIT 28.5 % (37.0-47.0); HEMOGLOBIN 9.2 g/dl (12.0-16.0); LYMPHOCYTES # 1.1 10^3/ul (0.8-2.9); LYMPHOCYTES % 14.7 % (15.0-51.0); MEAN CORPUSCULAR HEMOGLOBIN 28.7 pg (29.0-33.0); MEAN CORPUSCULAR HGB CONC 32.3 g/dl (32.0-37.0); MEAN CORPUSCULAR VOLUME 88.8 fl (82.0-101.0); MEAN PLATELET VOLUME 9.2 fl (7.4-10.4); MONOCYTE # 0.8 10^3/ul (0.3-0.9); MONOCYTES % 11.8 % (0.0-11.0); NEUTROPHIL # 5.1 10^3/ul (1.6-7.5); NEUTROPHILS % 72.2 % (39.0-77.0); PLATELET COUNT 207 10^3/UL (140-415); RED BLOOD COUNT 3.21 10^6/ul (4.20-5.40); RED CELL DISTRIBUTION WIDTH 14.5 % (11.5-14.5)
[2018-05-05 07:40] LABS: ALANINE AMINOTRANSFERASE 200 IU/L (13-69); ALBUMIN 3.3 g/dl (3.3-4.9); ALBUMIN/GLOBULIN RATIO 1.26; ALKALINE PHOSPHATASE 88 IU/L (42-121); ANION GAP 11 (5-13); ASPARTATE AMINO TRANSFERASE 46 IU/L (15-46); BILIRUBIN,INDIRECT 0.9 mg/dl (0-1.1); BILIRUBIN,TOTAL 0.9 mg/dl (0.2-1.3); BLOOD UREA NITROGEN 12 mg/dl (7-20); CALCIUM 8.3 mg/dl (8.4-10.2); CARBON DIOXIDE 24 mmol/L (21-31); CHLORIDE 103 mmol/L (97-110); Estimated GFR > 60 mL/min (>60); GLUCOSE 107 mg/dl (70-220); POTASSIUM 3.7 mmol/L (3.5-5.1); SODIUM 138 mmol/L (135-144); TOTAL PROTEIN 5.9 g/dl (6.1-8.1)
[2018-05-05 07:42] LABS: LIPASE 1769 U/L (23-300)
[2018-05-05 07:43] LABS: MAGNESIUM 1.8 mg/dl (1.7-2.5)
[2018-05-05] MEDS: GABAPENTIN 300 MG CAP PO ×3 (09:10→21:35)
[2018-05-05] MEDS: HYDROCODONE/APAP (5/325) TAB PO (09:10)
[2018-05-05] MEDS: AMIODARONE 200 MG TAB PO ×2 (09:10→21:36)
[2018-05-05] MEDS: ANASTROZOLE 1 MG TAB PO (09:15)
[2018-05-05] MEDS: IOHEXOL 300MG/ML 150 ML BTL (14:49)
[2018-05-05] MEDS: SOD CHLORIDE 0.9% 100 ML (14:49)
[2018-05-05] MEDS: ONDANSETRON 4 MG INJ IV (17:03)
[2018-05-05] MEDS: ATORVASTATIN 10 MG TAB PO (21:35)
[2018-05-05] MEDS: NORTRIPTYLINE 25 MG CAP PO (21:36)
[2018-05-06] MEDS: SOD CHLORIDE 0.9% IVPB (05:20)
[2018-05-06] MEDS: ACYCLOVIR IVPB (05:20)
[2018-05-06] MEDS: PANTOPRAZOLE (EC) 40 MG TAB PO (05:20)
[2018-05-06 06:57] LABS: ADD MAN DIFF? NO
[2018-05-06 07:07] LABS: WHITE BLOOD COUNT 5.5 10^3/ul (4.8-10.8)
[2018-05-06 07:07] LABS: BASOPHILS % 0.4 % (0.0-2.0); EOSINOPHILS # 0.1 10^3/ul (0.0-0.5); EOSINOPHILS % 1.5 % (0.0-7.0); HEMATOCRIT 26.6 % (37.0-47.0); HEMOGLOBIN 8.5 g/dl (12.0-16.0); LYMPHOCYTES # 0.8 10^3/ul (0.8-2.9); LYMPHOCYTES % 14.8 % (15.0-51.0); MEAN CORPUSCULAR HEMOGLOBIN 28.7 pg (29.0-33.0); MEAN CORPUSCULAR VOLUME 89.9 fl (82.0-101.0); MEAN PLATELET VOLUME 9.4 fl (7.4-10.4); MONOCYTE # 0.6 10^3/ul (0.3-0.9); MONOCYTES % 11.3 % (0.0-11.0); NEUTROPHILS % 71.8 % (39.0-77.0); PLATELET COUNT 192 10^3/UL (140-415); RED BLOOD COUNT 2.96 10^6/ul (4.20-5.40); RED CELL DISTRIBUTION WIDTH 14.5 % (11.5-14.5)
[2018-05-06 07:50] LABS: LIPASE 816 U/L (23-300)
[2018-05-06 07:50] LABS: MAGNESIUM 1.7 mg/dl (1.7-2.5)
[2018-05-06 08:10] LABS: ALANINE AMINOTRANSFERASE 156 IU/L (13-69); ALBUMIN 3.2 g/dl (3.3-4.9); ALBUMIN/GLOBULIN RATIO 1.23; ALKALINE PHOSPHATASE 80 IU/L (42-121); ANION GAP 10 (5-13); ASPARTATE AMINO TRANSFERASE 36 IU/L (15-46); BILIRUBIN,INDIRECT 0.7 mg/dl (0-1.1); BILIRUBIN,TOTAL 0.7 mg/dl (0.2-1.3); BLOOD UREA NITROGEN 10 mg/dl (7-20); CALCIUM 8.3 mg/dl (8.4-10.2); CARBON DIOXIDE 26 mmol/L (21-31); CHLORIDE 102 mmol/L (97-110); CREATININE 0.76 mg/dl (0.44-1.00); Estimated GFR > 60 mL/min (>60); GLUCOSE 100 mg/dl (70-220); POTASSIUM 3.8 mmol/L (3.5-5.1); SODIUM 138 mmol/L (135-144); TOTAL PROTEIN 5.8 g/dl (6.1-8.1)
[2018-05-06] MEDS: GABAPENTIN 300 MG CAP PO ×3 (09:21→20:58)
[2018-05-06] MEDS: AMIODARONE 200 MG TAB PO ×2 (09:21→20:58)
[2018-05-06] MEDS: ANASTROZOLE 1 MG TAB PO (09:22)
[2018-05-06] MEDS: FUROSEMIDE 40 MG TAB PO (09:30)
[2018-05-06 12:04] LABS: HEMATOCRIT 27.2 % (37.0-47.0); HEMOGLOBIN 8.8 g/dl (12.0-16.0)
[2018-05-06] MEDS: VALACYCLOVIR 500 MG TAB PO ×2 (13:03→20:57)
[2018-05-06] MEDS: SALINE 0.65% 45 ML NAS SPRAY NASAL ×2 (13:04→21:00)
[2018-05-06] MEDS: FUROSEMIDE 20 MG INJ IV (13:04)
[2018-05-06] MEDS ORDERED: RIVAROXABAN 15 MG TABLET PO (18:00)
[2018-05-06] MEDS: ATORVASTATIN 10 MG TAB PO (20:57)
[2018-05-06] MEDS: NORTRIPTYLINE 25 MG CAP PO (20:57)
[2018-05-07] MEDS: PANTOPRAZOLE (EC) 40 MG TAB PO (05:58)
[2018-05-07 08:56] LABS: ADD MAN DIFF? NO
[2018-05-07] MEDS: SALINE 0.65% 45 ML NAS SPRAY NASAL ×2 (08:58→20:06)
[2018-05-07] MEDS: VALACYCLOVIR 500 MG TAB PO ×3 (08:58→20:04)
[2018-05-07] MEDS: AMIODARONE 200 MG TAB PO ×2 (08:59→20:05)
[2018-05-07] MEDS: GABAPENTIN 300 MG CAP PO ×3 (09:00→20:05)
[2018-05-07] MEDS: LISINOPRIL 5 MG TAB PO (09:00)
[2018-05-07] MEDS: FUROSEMIDE 40 MG TAB PO ×2 (09:00→20:05)
[2018-05-07] MEDS ORDERED: FUROSEMIDE 40 MG TAB PO (09:00)
[2018-05-07 09:02] LABS: WHITE BLOOD COUNT 5.7 10^3/ul (4.8-10.8)
[2018-05-07 09:02] LABS: BASOPHILS % 0.2 % (0.0-2.0); EOSINOPHILS # 0.1 10^3/ul (0.0-0.5); EOSINOPHILS % 1.6 % (0.0-7.0); HEMATOCRIT 28.6 % (37.0-47.0); HEMOGLOBIN 9.2 g/dl (12.0-16.0); LYMPHOCYTES # 0.7 10^3/ul (0.8-2.9); LYMPHOCYTES % 12.9 % (15.0-51.0); MEAN CORPUSCULAR HEMOGLOBIN 28.7 pg (29.0-33.0); MEAN CORPUSCULAR HGB CONC 32.2 g/dl (32.0-37.0); MEAN CORPUSCULAR VOLUME 89.1 fl (82.0-101.0); MEAN PLATELET VOLUME 9.6 fl (7.4-10.4); MONOCYTE # 0.6 10^3/ul (0.3-0.9); MONOCYTES % 9.8 % (0.0-11.0); NEUTROPHIL # 4.3 10^3/ul (1.6-7.5); NEUTROPHILS % 75.2 % (39.0-77.0); PLATELET COUNT 265 10^3/UL (140-415); RED BLOOD COUNT 3.21 10^6/ul (4.20-5.40); RED CELL DISTRIBUTION WIDTH 14.6 % (11.5-14.5)
[2018-05-07] MEDS: ANASTROZOLE 1 MG TAB PO (09:09)
[2018-05-07 09:21] LABS: ALANINE AMINOTRANSFERASE 138 IU/L (13-69); ALBUMIN 3.3 g/dl (3.3-4.9); ALBUMIN/GLOBULIN RATIO 1.06; ALKALINE PHOSPHATASE 98 IU/L (42-121); ANION GAP 9 (5-13); ASPARTATE AMINO TRANSFERASE 38 IU/L (15-46); BILIRUBIN,INDIRECT 0.9 mg/dl (0-1.1); BILIRUBIN,TOTAL 0.9 mg/dl (0.2-1.3); BLOOD UREA NITROGEN 14 mg/dl (7-20); CALCIUM 8.6 mg/dl (8.4-10.2); CARBON DIOXIDE 29 mmol/L (21-31); CHLORIDE 101 mmol/L (97-110); CREATININE 0.84 mg/dl (0.44-1.00); Estimated GFR > 60 mL/min (>60); GLUCOSE 152 mg/dl (70-220); POTASSIUM 3.8 mmol/L (3.5-5.1); SODIUM 139 mmol/L (135-144); TOTAL PROTEIN 6.4 g/dl (6.1-8.1)
[2018-05-07 09:28] LABS: MAGNESIUM 1.7 mg/dl (1.7-2.5)
[2018-05-07 09:37] LABS: LIPASE 2218 U/L (23-300)
[2018-05-07] MEDS: ATORVASTATIN 10 MG TAB PO (20:04)
[2018-05-07] MEDS: NORTRIPTYLINE 25 MG CAP PO (20:04)
[2018-05-08] MEDS: PANTOPRAZOLE (EC) 40 MG TAB PO (05:49)
[2018-05-08 06:54] LABS: ADD MAN DIFF? NO
[2018-05-08 07:04] LABS: BASOPHILS % 0.4 % (0.0-2.0); EOSINOPHILS # 0.1 10^3/ul (0.0-0.5); HEMATOCRIT 28.9 % (37.0-47.0); HEMOGLOBIN 9.3 g/dl (12.0-16.0); LYMPHOCYTES # 0.8 10^3/ul (0.8-2.9); MEAN CORPUSCULAR HEMOGLOBIN 28.7 pg (29.0-33.0); MEAN CORPUSCULAR HGB CONC 32.2 g/dl (32.0-37.0); MEAN CORPUSCULAR VOLUME 89.2 fl (82.0-101.0); MEAN PLATELET VOLUME 9.3 fl (7.4-10.4); MONOCYTE # 0.6 10^3/ul (0.3-0.9); MONOCYTES % 11.9 % (0.0-11.0); NEUTROPHIL # 3.4 10^3/ul (1.6-7.5); NEUTROPHILS % 69.5 % (39.0-77.0); PLATELET COUNT 322 10^3/UL (140-415); RED BLOOD COUNT 3.24 10^6/ul (4.20-5.40); RED CELL DISTRIBUTION WIDTH 14.9 % (11.5-14.5)
[2018-05-08 07:04] LABS: WHITE BLOOD COUNT 4.9 10^3/ul (4.8-10.8)
[2018-05-08 07:24] LABS: MAGNESIUM 1.6 mg/dl (1.7-2.5)
[2018-05-08 07:35] LABS: ALANINE AMINOTRANSFERASE 122 IU/L (13-69); ALBUMIN 3.5 g/dl (3.3-4.9); ALBUMIN/GLOBULIN RATIO 1.12; ALKALINE PHOSPHATASE 103 IU/L (42-121); ANION GAP 10 (5-13); ASPARTATE AMINO TRANSFERASE 41 IU/L (15-46); BLOOD UREA NITROGEN 11 mg/dl (7-20); CALCIUM 8.5 mg/dl (8.4-10.2); CARBON DIOXIDE 30 mmol/L (21-31); CHLORIDE 100 mmol/L (97-110); CREATININE 0.79 mg/dl (0.44-1.00); Estimated GFR > 60 mL/min (>60); GLUCOSE 112 mg/dl (70-220); POTASSIUM 3.2 mmol/L (3.5-5.1); SODIUM 140 mmol/L (135-144); TOTAL PROTEIN 6.6 g/dl (6.1-8.1)
[2018-05-08 07:36] LABS: LIPASE 2765 U/L (23-300)
[2018-05-08] MEDS: VALACYCLOVIR 500 MG TAB PO ×3 (09:06→20:34)
[2018-05-08] MEDS: HYDROCODONE/APAP (5/325) TAB PO (09:07)
[2018-05-08] MEDS: FUROSEMIDE 40 MG TAB PO ×2 (09:07→20:33)
[2018-05-08] MEDS: LISINOPRIL 5 MG TAB PO (09:08)
[2018-05-08] MEDS: GABAPENTIN 300 MG CAP PO ×3 (09:09→20:33)
[2018-05-08] MEDS: ANASTROZOLE 1 MG TAB PO (09:09)
[2018-05-08] MEDS: AMIODARONE 200 MG TAB PO ×2 (09:10→20:34)
[2018-05-08] MEDS: SALINE 0.65% 45 ML NAS SPRAY NASAL ×2 (09:13→20:35)
[2018-05-08] MEDS: POTASSIUM CHLORIDE 20 MEQ POWDER FOR ORAL SOLN PO (09:45)
[2018-05-08] MEDS: MAGNESIUM SULFATE 2 GM/50 ML 50 ML IVPB (09:45)
[2018-05-08] MEDS: NORTRIPTYLINE 25 MG CAP PO (20:34)
[2018-05-08] MEDS: ATORVASTATIN 10 MG TAB PO (20:34)
[2018-05-09] MEDS: PANTOPRAZOLE (EC) 40 MG TAB PO (05:43)
[2018-05-09 07:00] LABS: ADD MAN DIFF? NO
[2018-05-09 07:21] LABS: WHITE BLOOD COUNT 4.6 10^3/ul (4.8-10.8)
[2018-05-09 07:21] LABS: BASOPHILS % 0.7 % (0.0-2.0); EOSINOPHILS # 0.1 10^3/ul (0.0-0.5); EOSINOPHILS % 2.2 % (0.0-7.0); HEMOGLOBIN 9.7 g/dl (12.0-16.0); LYMPHOCYTES # 0.8 10^3/ul (0.8-2.9); LYMPHOCYTES % 17.9 % (15.0-51.0); MEAN CORPUSCULAR HEMOGLOBIN 29.1 pg (29.0-33.0); MEAN CORPUSCULAR HGB CONC 32.3 g/dl (32.0-37.0); MEAN CORPUSCULAR VOLUME 90.1 fl (82.0-101.0); MEAN PLATELET VOLUME 9.3 fl (7.4-10.4); MONOCYTE # 0.6 10^3/ul (0.3-0.9); MONOCYTES % 12.4 % (0.0-11.0); NEUTROPHILS % 66.4 % (39.0-77.0); PLATELET COUNT 342 10^3/UL (140-415); RED BLOOD COUNT 3.33 10^6/ul (4.20-5.40); RED CELL DISTRIBUTION WIDTH 15.4 % (11.5-14.5)
[2018-05-09 07:53] LABS: ALANINE AMINOTRANSFERASE 104 IU/L (13-69); ALBUMIN 3.7 g/dl (3.3-4.9); ALBUMIN/GLOBULIN RATIO 1.12; ALKALINE PHOSPHATASE 111 IU/L (42-121); ANION GAP 12 (5-13); ASPARTATE AMINO TRANSFERASE 37 IU/L (15-46); BILIRUBIN,INDIRECT 1.1 mg/dl (0-1.1); BILIRUBIN,TOTAL 1.1 mg/dl (0.2-1.3); BLOOD UREA NITROGEN 14 mg/dl (7-20); CALCIUM 8.9 mg/dl (8.4-10.2); CARBON DIOXIDE 29 mmol/L (21-31); CHLORIDE 99 mmol/L (97-110); CREATININE 0.93 mg/dl (0.44-1.00); Estimated GFR > 60 mL/min (>60); GLUCOSE 110 mg/dl (70-220); POTASSIUM 3.7 mmol/L (3.5-5.1); SODIUM 140 mmol/L (135-144)
[2018-05-09 07:58] LABS: MAGNESIUM 1.7 mg/dl (1.7-2.5)
[2018-05-09] MEDS: GABAPENTIN 300 MG CAP PO ×3 (08:23→21:04)
[2018-05-09] MEDS: VALACYCLOVIR 500 MG TAB PO ×3 (08:23→21:05)
[2018-05-09] MEDS: AMIODARONE 200 MG TAB PO ×2 (08:24→21:04)
[2018-05-09] MEDS: FUROSEMIDE 40 MG TAB PO ×2 (08:25→21:04)
[2018-05-09 08:27] LABS: LIPASE 2884 U/L (23-300)
[2018-05-09] MEDS: ANASTROZOLE 1 MG TAB PO (08:27)
[2018-05-09] MEDS: LISINOPRIL 5 MG TAB PO (08:29)
[2018-05-09] MEDS: SALINE 0.65% 45 ML NAS SPRAY NASAL ×2 (08:32→21:00)
[2018-05-09] MEDS: MAGNESIUM OXIDE 400 MG TAB PO (10:05)
[2018-05-09 13:57] LABS: AMYLASE 309 U/L (11-123)
[2018-05-09] MEDS: ATORVASTATIN 10 MG TAB PO (21:03)
[2018-05-09] MEDS: NORTRIPTYLINE 25 MG CAP PO (21:05)
[2018-05-10] MEDS: PANTOPRAZOLE (EC) 40 MG TAB PO (06:17)
[2018-05-10 08:49] LABS: ADD MAN DIFF? NO
[2018-05-10 08:53] LABS: BASOPHILS % 0.5 % (0.0-2.0); EOSINOPHILS # 0.1 10^3/ul (0.0-0.5); EOSINOPHILS % 1.4 % (0.0-7.0); HEMATOCRIT 31.9 % (37.0-47.0); HEMOGLOBIN 10.3 g/dl (12.0-16.0); LYMPHOCYTES # 1.2 10^3/ul (0.8-2.9); LYMPHOCYTES % 21.2 % (15.0-51.0); MEAN CORPUSCULAR HEMOGLOBIN 28.9 pg (29.0-33.0); MEAN CORPUSCULAR HGB CONC 32.3 g/dl (32.0-37.0); MEAN CORPUSCULAR VOLUME 89.6 fl (82.0-101.0); MEAN PLATELET VOLUME 9.2 fl (7.4-10.4); MONOCYTE # 0.5 10^3/ul (0.3-0.9); MONOCYTES % 9.2 % (0.0-11.0); NEUTROPHIL # 3.8 10^3/ul (1.6-7.5); NEUTROPHILS % 67.3 % (39.0-77.0); NUCLEATED RED BLOOD CELLS% 0.4 /100WBC (0.0-0.0); PLATELET COUNT 415 10^3/UL (140-415); RED BLOOD COUNT 3.56 10^6/ul (4.20-5.40); RED CELL DISTRIBUTION WIDTH 15.7 % (11.5-14.5); RETICULOCYTE COUNT # 0.201 X10^6 (0.020-0.110); RETICULOCYTE COUNT % 5.6 % (0.5-1.5)
[2018-05-10 08:53] LABS: RETICULOCYTE RBC 3.58; WHITE BLOOD COUNT 5.7 10^3/ul (4.8-10.8)
[2018-05-10] MEDS: SALINE 0.65% 45 ML NAS SPRAY NASAL ×2 (09:00→21:00)
[2018-05-10 09:11] LABS: LACTATE DEHYDROGENASE 493 IU/L (313-618)
[2018-05-10 09:11] LABS: IRON 67 ug/dl (35-150)
[2018-05-10 09:12] LABS: ALANINE AMINOTRANSFERASE 87 IU/L (13-69); ALBUMIN 4.1 g/dl (3.3-4.9); ALBUMIN/GLOBULIN RATIO 1.13; ALKALINE PHOSPHATASE 122 IU/L (42-121); ANION GAP 13 (5-13); ASPARTATE AMINO TRANSFERASE 36 IU/L (15-46); BILIRUBIN,INDIRECT 1.2 mg/dl (0-1.1); BILIRUBIN,TOTAL 1.2 mg/dl (0.2-1.3); BLOOD UREA NITROGEN 16 mg/dl (7-20); CALCIUM 9.1 mg/dl (8.4-10.2); CARBON DIOXIDE 27 mmol/L (21-31); CHLORIDE 100 mmol/L (97-110); CREATININE 0.87 mg/dl (0.44-1.00); Estimated GFR > 60 mL/min (>60); GLUCOSE 115 mg/dl (70-220); POTASSIUM 3.6 mmol/L (3.5-5.1); SODIUM 140 mmol/L (135-144); TOTAL PROTEIN 7.7 g/dl (6.1-8.1)
[2018-05-10 09:20] LABS: % IRON SATURATION 17 % SAT (22-52); TOTAL IRON BINDING CAPACITY 401 ug/dl (241-421)
[2018-05-10] MEDS: GABAPENTIN 300 MG CAP PO ×3 (09:27→21:06)
[2018-05-10] MEDS: AMIODARONE 200 MG TAB PO ×2 (09:28→21:05)
[2018-05-10] MEDS: FUROSEMIDE 40 MG TAB PO ×2 (09:28→21:06)
[2018-05-10] MEDS: VALACYCLOVIR 500 MG TAB PO ×3 (09:29→21:06)
[2018-05-10] MEDS: ANASTROZOLE 1 MG TAB PO (09:30)
[2018-05-10] MEDS: LISINOPRIL 5 MG TAB PO (09:31)
[2018-05-10 09:48] LABS: FERRITIN 62.5 ng/ml (11.1-264.0)
[2018-05-10 09:49] LABS: MAGNESIUM 1.8 mg/dl (1.7-2.5)
[2018-05-10 13:47] LABS: AMYLASE 325 U/L (11-123)
[2018-05-10] MEDS: NORTRIPTYLINE 25 MG CAP PO (21:04)
[2018-05-10] MEDS: ATORVASTATIN 10 MG TAB PO (21:06)
[2018-05-11] MEDS: PANTOPRAZOLE (EC) 40 MG TAB PO (05:47)
[2018-05-11] MEDS: ONDANSETRON 4 MG INJ IV (05:47)
[2018-05-11 06:31] LABS: ADD MAN DIFF? NO
[2018-05-11 06:41] LABS: WHITE BLOOD COUNT 5.6 10^3/ul (4.8-10.8)
[2018-05-11 06:41] LABS: BASOPHILS % 0.7 % (0.0-2.0); EOSINOPHILS # 0.1 10^3/ul (0.0-0.5); EOSINOPHILS % 1.8 % (0.0-7.0); HEMATOCRIT 33.5 % (37.0-47.0); HEMOGLOBIN 10.6 g/dl (12.0-16.0); LYMPHOCYTES # 1.2 10^3/ul (0.8-2.9); MEAN CORPUSCULAR HEMOGLOBIN 28.4 pg (29.0-33.0); MEAN CORPUSCULAR HGB CONC 31.6 g/dl (32.0-37.0); MEAN CORPUSCULAR VOLUME 89.8 fl (82.0-101.0); MEAN PLATELET VOLUME 8.8 fl (7.4-10.4); MONOCYTE # 0.5 10^3/ul (0.3-0.9); MONOCYTES % 9.3 % (0.0-11.0); NEUTROPHIL # 3.8 10^3/ul (1.6-7.5); NEUTROPHILS % 66.8 % (39.0-77.0); PLATELET COUNT 385 10^3/UL (140-415); RED BLOOD COUNT 3.73 10^6/ul (4.20-5.40); RED CELL DISTRIBUTION WIDTH 15.9 % (11.5-14.5)
[2018-05-11 07:19] LABS: ANION GAP 13 (5-13); BLOOD UREA NITROGEN 19 mg/dl (7-20); CALCIUM 9.3 mg/dl (8.4-10.2); CARBON DIOXIDE 28 mmol/L (21-31); CHLORIDE 100 mmol/L (97-110); CREATININE 0.97 mg/dl (0.44-1.00); Estimated GFR 59 mL/min (>60); GLUCOSE 117 mg/dl (70-220); MAGNESIUM 1.8 mg/dl (1.7-2.5); PHOSPHORUS 3.9 mg/dl (2.5-4.9); POTASSIUM 3.8 mmol/L (3.5-5.1); SODIUM 141 mmol/L (135-144)
[2018-05-11] MEDS: SALINE 0.65% 45 ML NAS SPRAY NASAL (09:00)
[2018-05-11] MEDS: LOSARTAN 25 MG TAB PO (09:20)
[2018-05-11] MEDS: VALACYCLOVIR 500 MG TAB PO ×2 (09:20→12:11)
[2018-05-11] MEDS: AMIODARONE 200 MG TAB PO (09:21)
[2018-05-11] MEDS: GABAPENTIN 300 MG CAP PO ×2 (09:21→12:11)
[2018-05-11] MEDS: FUROSEMIDE 40 MG TAB PO (09:21)
[2018-05-11] MEDS: ANASTROZOLE 1 MG TAB PO (09:23)
[2018-05-13 09:47] LABS: HAPTOGLOBIN 161 mg/dL (43-212)
== END 2018-05-11 15:20 | disposition home health service (06) | DRG 417 ==
LOC: ICU 04-26 12:48 → 6WM 05-01 00:50 → 5EC 05-04 19:28 → E/R 10:11 → 2NE 14:19
PROC: 0FT44ZZ Resection of Gallbladder, Percutaneous Endoscopic Approach (ICD-10-PCS; principal; 2018-04-26 10:39)
PROC: 0DNW4ZZ Release Peritoneum, Percutaneous Endoscopic Approach (ICD-10-PCS; 2018-04-26 10:39)
PROC: 0FN44ZZ Release Gallbladder, Percutaneous Endoscopic Approach (ICD-10-PCS; 2018-04-26 10:39)
DX: K85.10 Biliary acute pancreatitis without necrosis or infection (principal); N17.0 Acute kidney failure with tubular necrosis; B57.2 Chagas' disease (chronic) with heart involvement; I42.9 Cardiomyopathy, unspecified; N17.9 Acute kidney failure, unspecified; I48.91 Unspecified atrial fibrillation; B02.9 Zoster without complications; D69.6 Thrombocytopenia, unspecified; I11.0 Hypertensive heart disease with heart failure; I50.9 Heart failure, unspecified; K80.20 Calculus of gallbladder without cholecystitis without obstruction; Z85.3 Personal history of malignant neoplasm of breast; E80.6 Other disorders of bilirubin metabolism; D64.9 Anemia, unspecified; R60.9 Edema, unspecified; Z86.19 Personal history of other infectious and parasitic diseases; E78.5 Hyperlipidemia, unspecified; R04.0 Epistaxis; M79.81 Nontraumatic hematoma of soft tissue
CPT/HCPCS: 36415; 71045; 71275; 72192; 73700; 74177; 75635; 76700; 76705; 76775; 80048; 80053; 80069; 80076; 81001; 81003; 82150; 82570; 82728; 83010; 83036; 83540; 83615; 83690; 83735; 83880; 84100; 84300; 84484; 85014; 85018; 85025; 85045; 85610; 86704; 86706; 86803; 87040; 87081; 87086; 87340; 88304; 93005; 93306; 96374; 97110; 97116; 97161; 97530; 99285-25